=== PATIENT | female | born 2000 | race Caucasian/White ===

== ENCOUNTER 2021-12-09 19:30 | Emergency (ER) | payer BC ==
[2021-12-09 19:55] VITALS: BP 113/79; PULSE 93; RESP 18; TEMP 98.8; BMI 22.6
[2021-12-09 21:06] LABS: URINE APPEARANCE CLEAR; URINE BILIRUBIN NEGATIVE (NEGATIVE); URINE COLOR YELLOW; URINE GLUCOSE (UA) NEGATIVE (NEGATIVE); URINE KETONE TRACE (NEGATIVE); URINE LEUK ESTERASE NEGATIVE (NEGATIVE); URINE NITRITE NEGATIVE (NEGATIVE); URINE PROTEIN TRACE (NEGATIVE); URINE UROBILINOGEN 0.2 mg/dL (0.2-1.0)
[2021-12-09 21:17] LABS: HCG,QUALITATIVE URINE Negative
== END 2021-12-10 00:24 | disposition home or self-care (01) ==
LOC: JERFT 19:30 → JER 19:30 → JERFT 12-10 00:24
DX: N32.89 Other specified disorders of bladder (principal)
CPT/HCPCS: 76856-TC; 81003; 84703; 87086; 99284-25